=== PATIENT | female | born 1985 | race Caucasian/White ===

== ENCOUNTER 2017-12-19 12:03 | Emergency (ER) | payer OTHER ==
[~2017-12-19] VITALS: Ht 170.2 cm; Wt 86.2 kg
--- NOTE | 2017-12-19 15:59 | ED GI/GU/ABDOMINAL COMPLAINT ---
History of Present Illness General Chief Complaint: General Adult Stated Complaint: SENT IN BY FOR ABD DIANE HX OF CROHNS Source: patient Exam Limitations: no limitations Vital Signs & Intake/Output Vital Signs & Intake/Output Vital Signs Date Time Temp Pulse Resp B/P B/P Pulse O2 O2 Flow FiO2 Mean Ox Delivery Rate 12/19 1905 98.4 70 14 119/72 98 Room Air 12/19 1649 97.6 75 16 119/66 97 Room Air 12/19 1429 98.6 71 18 104/66 97 Room Air 12/19 1230 98.1 76 18 118/79 97 Room Air Allergies Coded Allergies: azathioprine (UNKNOWN REACTION TO THIOPURINES 10/23/15) ciprofloxacin (From CIPRO) (UNKNOWN 10/23/15) mercaptopurine (UNKNOWN REACTION TO THIOPURINES 10/23/15) oxycodone (Intermediate, ITCHING 11/24/15) azithromycin (Mild, ABDOMINAL CRAMPING 10/23/15) cephalexin (Mild, SILVER 11/24/15) hydromorphone (From DILAUDID) (Mild, MAKES HER DROWSY 10/23/15) Reconcile Medications Hydrocodone/Acetaminophen (Vicodin 5-300 MG Tablet) 5 MG-300 MG TABLET 1 TAB PO BID PRN PAIN Triage Note: PT TO ER C/C 1 DAY HX OF LLQ PAIN SHARP AND STABBING. PT DOES NOT GET MENSTRUAL PERIODS X "YEARS". DENIES N/V/D. DENIES URINARY S/S. Triage Nurses Notes Reviewed? yes ? N Is pt currently ? No Onset: Gradual Duration: constant Timing: recent history Quality/Severity: moderate Severity Numbers: 5 HPI: Patient is a 32-year-old female with past medical history of Crohn's [facility] in which she presents emergency room with a acute onset of left lower quadrant localized abdominal pain. Patient denies any fever chills dysuria hematuria vaginal bleeding or discharge. Last bowel movement was today no blood no melena noted. Patient any change in symptoms of pain and can tolerate by mouth (Bridger CAMPBELL,Mick) Past History Travel History Traveled to [place] past 21 day No Medical History Any Pertinent Medical History? see below for history EENT: allergies Respiratory: asthma Gastrointestinal: Crohn's disease Musculoskeletal: fibromyalgia, psoariatic arthritis Surgical History Surgical History: non-contributory Psychosocial History Who do you live with Family Services at Home None What is your primary language Azeri Tobacco Use: Never used Family History Hx Contributory? No (Mick Laura) Review of Systems Review of Systems Constitutional: Reports: no symptoms. EENTM: Reports: no symptoms. Respiratory: Reports: no symptoms. Cardiovascular: Reports: no symptoms. GI: Reports: see HPI, abdominal pain. Genitourinary: Reports: no symptoms. Musculoskeletal: Reports: no symptoms. Skin: Reports: no symptoms. Neurological/Psychological: Reports: no symptoms. Hematologic/Endocrine: Reports: no symptoms. Immunologic/Allergic: Reports: no symptoms. All Other Systems: Reviewed and Negative (Mick Laura) Physical Exam Physical Exam General Appearance: no apparent distress, alert, comfortable Head: atraumatic Eyes: Bilateral: normal appearance. Ears, Nose, Throat, Mouth: moist mucous membrane Neck: normal inspection Respiratory: no respiratory distress Cardiovascular: regular rate/rhythm Gastrointestinal: normal bowel sounds, soft, LLQ PAIN NO REBOUND TENDERNESS Extremities: normal range of motion Neurologic/Psych: no motor/sensory deficits Skin: intact, normal color Core Measures ACS in differential dx? No Sepsis Present: No Sepsis Focused Exam Completed? No (Mick Laura) Progress Differential Diagnosis: AAA, AMI, appendicitis, biliary colic, bowel obstruction , colon cancer, cholecystitis, diverticulitis, ectopic , endometritis, esophageal varices, gastritis, hepatitis, hernia, hemorrhoids, ischemic bowel, inflamm bowel dis, intrauterine , kidney stone, Elham-Wang tear, ovarian cyst, ovarian torsion, pancreatitis, PID/cervicitis, peptic ulcer, PUD/ GERD, perforated viscous, SBO, threatened AB, UTI/pyelo Plan of Care: Orders Procedure Date/time Status LIPASE 12/19 1613 Complete LACTIC ACID 12/19 1613 Complete COMPREHENSIVE METABOLIC PANEL 12/19 1613 Complete CBC WITHOUT DIFFERENTIAL 12/19 161 Complete URINE 12/19 1249 Complete URINALYSIS 12/19 1249 Complete Laboratory Tests 12/19/17 1913: Lactic Acid Cancelled 12/19/17 1635: Anion Gap 12, Estimated GFR > 60, BUN/Creatinine Ratio 12.5, Glucose 88, Lactic Acid 0.8, Calcium 9.4, Total Bilirubin 0.4, AST 55 H, ALT 79 H, Alkaline Phosphatase 72, Total Protein 7.1, Albumin 4.0, Globulin 3.1, Albumin/Globulin Ratio 1.3, Lipase 42, CBC w Diff NO MAN DIFF REQ, RBC 4.03 L, MCV 93.9, MCH 31.6 H, MCHC 33.7, RDW 13.3, MPV 8.4, Gran % 56.0, Lymphocytes % 31.7, Monocytes % 10.2 H, Eosinophils % 1.6, Basophils % 0.5, Absolute Granulocytes 4.9, Absolute Lymphocytes 2.8, Absolute Monocytes 0.9 H, Absolute Eosinophils 0.1, Absolute Basophils 0 12/19/17 1251: Urinalysis LIGHT H, Urine Color YEL, Urine Clarity HAZY H, Urine pH 7.0, Ur Specific Buhl 1.020, Urine Protein NEG, Urine Ketones NEG, Urine Nitrite NEG, Urine Bilirubin NEG, Urine Urobilinogen 0.2, Ur Leukocyte Esterase NEG, Ur Microscopic SEDIMENT EXAMINED, Urine RBC 1-3, Urine WBC RARE, Ur Epithelial Cells FEW, Urine Bacteria MOD H, Urine Mucus MANY H, Urine Hemoglobin NEG, Urine Glucose NEG, Urine Test NEGATIVE Patient on initial presentation was resting comfortable at bedside afebrile patient's complaint is abdominal pain with no other associated symptoms, patient 's had normal bowel movements no changes, blood work was resulted unremarkable and CT scan shows concerns of epiploic APPENDIGITIS Discussed CT scan results the patient was aware. Upon discharge patient looks well in no apparent distress and will comply with discharge instructions and had no questions Diagnostic Imaging: Viewed by Me: CT Scan. Radiology Impression: SEE COMMENTS Initial ED EKG: none Comments: PATIENT: TAZ SINGH PRESENT AGE: 32 PATIENT ACCOUNT NO: [id number] : 84 LOCATION: [facility] ORDERING PHYSICIAN: Mick CAMPBELL SERVICE DATE: 12/19/17 EXAM TYPE: CAT - CT ABD & PELVIS W IV CONTRAST EXAMINATION: CT ABDOMEN AND PELVIS WITH CONTRAST CLINICAL INFORMATION: History of Crohn's disease. Abdominal pain. COMPARISON: CT scan abdomen pelvis 12/09/2011, 11/16/2010 TECHNIQUE: Multidetector volumetric imaging was performed of the abdomen and pelvis following IV administration of 95 mL of Optiray 320 intravenous contrast. Sagittal and coronal reformatted images were obtained on the technologist's workstation. DLP: 384.85 mGy-cm FINDINGS: LUNG BASES: The visualized lung bases are unremarkable. LIVER, GALLBLADDER, AND BILIARY TREE: The liver is normal in size, shape, and attenuation. No focal hepatic lesion or biliary ductal dilatation is present. The gallbladder is unremarkable with no evidence of radiopaque gallstones, gallbladder wall thickening, or obvious pericholecystic inflammatory changes. PANCREAS: Unremarkable. SPLEEN: Unremarkable. ADRENAL GLANDS: Unremarkable. KIDNEYS AND URETERS: The kidneys are normal in size, shape, and attenuation. No hydronephrosis, hydroureter, or calculi seen. No perinephric stranding. BLADDER: Unremarkable. MESENTERY/GASTROINTESTINAL TRACT: There is a focus of edema in the right lower quadrant involving the pericolonic fat. This is a region of epiploic appendagitis. There is no bowel wall thickening or edema. No bowel obstruction. Moderate volume of stool in the colon. The appendix is not identified. The small bowel loops are normal. ABDOMINAL WALL: No significant hernia is appreciated. LYMPH NODES: Normal. VASCULAR: Unremarkable. PELVIC VISCERA: Unremarkable. OSSEOUS STRUCTURES: Unremarkable. IMPRESSION: Inflammation of the mesentery in the left lower quadrant consistent with an area of epiploic appendagitis. No acute change of the bowel. DICTATED BY: Anthony Brasher MD DATE/TIME DICTATED:12/19/171818 GROUP HOME MANAGER:NEGRO DATE/TIME TRANSCRIBED:12/19/171818 CONFIDENTIAL, DO NOT COPY WITHOUT APPROPRIATE AUTHORIZATION. 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 IF Symptoms worsen return to emergency room Departure Forms: Customer Survey General Discharge Information Prescriptions: Current Visit Scripts Hydrocodone/Acetaminophen (Vicodin 5-300 MG Tablet) 1 TAB PO BID PRN PAIN #6 TAB (Mick Laura) PA/CHANNELER Co-Sign Statement Statement: ED Attending supervision documentation- [] I saw and evaluated the patient. I have also reviewed all the pertinent lab results and diagnostic results. I agree with the findings and the plan of care as documented in the PA's/CHANNELER's documentation. [x] I have reviewed the ED Record and agree with the PA's/CHANNELER's documentation. [] Additions or exceptions (if any) to the PAs/CHANNELER's note and plan are summarized below: [] (Jose Mcbride DO)
[2017-12-19 16:56] LABS: ABSOLUTE BASOPHIL COUNT 0 /CUMM (0.0-0.2); ABSOLUTE EOSINOPHIL COUNT 0.1 /CUMM (0.0-0.7); ABSOLUTE GRANULOCYTE CT 4.9 /CUMM (1.4-6.5); ABSOLUTE LYMPH COUNT 2.8 /CUMM (1.2-3.4); ABSOLUTE MONOCYTE COUNT 0.9 /CUMM (0.10-0.60); BASOPHIL % 0.5 % (0.0-2.0); EOSINOPHIL % 1.6 % (0-5); HEMATOCRIT 37.8 % (37-47); MEAN CORPUSCULAR HGB 31.6 PG (27.0-31.0); MEAN CORPUSCULAR HGB CONC 33.7 G/DL (33.0-37.0); MEAN CORPUSCULAR VOLUME 93.9 FL (81.0-99.0); MEAN PLATELET VOLUME 8.4 FL (7.4-10.4); PLATELET COUNT 238 /CUMM (130-400); RBC DISTRIBUTION WIDTH 13.3 % (11.5-14.5); RED BLOOD CELL CT 4.03 /CUMM (4.20-5.40); WHITE BLOOD CELL COUNT 8.8 /CUMM (4.8-10.8)
--- NOTE | 2017-12-19 18:31 | CT SCAN REPORT ---
EXAMINATION: CT ABDOMEN AND PELVIS WITH CONTRAST CLINICAL INFORMATION: History of Crohn's disease. Abdominal pain. COMPARISON: CT scan abdomen pelvis 12/09/2011, 11/16/2010 TECHNIQUE: Multidetector volumetric imaging was performed of the abdomen and pelvis following IV administration of 95 mL of Optiray 320 intravenous contrast. Sagittal and coronal reformatted images were obtained on the technologist's workstation. DLP: 384.85 mGy-cm FINDINGS: LUNG BASES: The visualized lung bases are unremarkable. LIVER, GALLBLADDER, AND BILIARY TREE: The liver is normal in size, shape, and attenuation. No focal hepatic lesion or biliary ductal dilatation is present. The gallbladder is unremarkable with no evidence of radiopaque gallstones, gallbladder wall thickening, or obvious pericholecystic inflammatory changes. PANCREAS: Unremarkable. SPLEEN: Unremarkable. ADRENAL GLANDS: Unremarkable. KIDNEYS AND URETERS: The kidneys are normal in size, shape, and attenuation. No hydronephrosis, hydroureter, or calculi seen. No perinephric stranding. BLADDER: Unremarkable. MESENTERY/GASTROINTESTINAL TRACT: There is a focus of edema in the right lower quadrant involving the pericolonic fat. This is a region of epiploic appendagitis. There is no bowel wall thickening or edema. No bowel obstruction. Moderate volume of stool in the colon. The appendix is not identified. The small bowel loops are normal. ABDOMINAL WALL: No significant hernia is appreciated. LYMPH NODES: Normal. VASCULAR: Unremarkable. PELVIC VISCERA: Unremarkable. OSSEOUS STRUCTURES: Unremarkable. IMPRESSION: Inflammation of the mesentery in the left lower quadrant consistent with an area of epiploic appendagitis. No acute change of the bowel.
[2017-12-19 19:05] VITALS: BP 119/72
[2017-12-19] MEDS ORDERED: VICODIN 5-3001 EACH PO (19:32)
== END 2017-12-19 19:42 ==
LOC: ERH 12:03
PROVIDERS: Physician Assistant
DX: Q43.8 Other specified congenital malformations of intestine (principal)
CPT/HCPCS: 74177; 81001; 81025